=== PATIENT | male | born 1980 | race Caucasian/White ===

== ENCOUNTER 2017-07-24 11:56 | Emergency (ER) | payer MEDICAID ==
[~2017-07-24] VITALS: Ht 167.6 cm; Wt 83.5 kg
[2017-07-24 11:59] VITALS: Ht 167.6 cm; Wt 83.5 kg
[2017-07-24] MEDS ORDERED: LIDOCAINE 2% (MDV) 20 ML INJ INJ ONE (14:30)
[2017-07-24] MEDS ORDERED: DIPHTH/TET/ACEL PERTUSS (ADULT) 0.5 ML VIAL IM* ONE (14:30)
[2017-07-24] MEDS ORDERED: HYDROCODONE/APAP (5/325) TAB PO ONE (14:30)
[2017-07-24] MEDS ORDERED: HYDR-906 PO (15:11)
[2017-07-24] MEDS ORDERED: IBUP-1542 PO (15:11)
[2017-07-24] MEDS ORDERED: AMOX1TAB10 PO (15:11)
--- NOTE | 2017-07-24 15:25 | ERD ---
ER Documentation Chief Complaint Date/Time DATE: 07/24/17 TIME: 15:12 Chief Complaint DOG BITE TO RIGHT ELBOW TODAY HPI 37-year-old male patient with no significant past medical history presents to the ED complaining of a dog bite that occurred at 11:30 AM yesterday. 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 Dog breed was a Urdu Feldman. Reports that the dog was vaccinated with his rabies vaccine. Reports he right-handed. Patient reports that he is updated with his tetanus vaccine. Reports that he has slight decreased range of motion due to the pain. States that the dog bite was deep. Denies any loss of sensation, nausea, vomiting, fever, chills, diarrhea. ROS All systems reviewed and are negative except as per history of present illness. Medications Home Meds Active Scripts Amoxicillin/Potassium Clav (Amox-Clav 875-125 mg Tablet) 875-125 mg Tab, 1 TAB PO BID for 10 Days, #20 TAB Prov:RIYA BASURTO PA-C 07/24/17 Ibuprofen* (Motrin*) 600 Mg Tab, 600 MG PO Q6, #30 TAB Prov:RIYA BASURTOC 07/24/17 Hydrocodone/Acetaminophen (Flomaton 5-325 Tablet) 1 Each Tablet, 1 TAB PO QHS Y for PAIN, #7 TAB Prov:RIYA BASURTO PA-C 07/24/17 Allergies Allergies: Coded Allergies: No Known Allergy (Unverified , 07/24/17) PMhx/Soc Medical and Surgical Hx: pt denies Medical Hx, pt denies Surgical Hx Hx Alcohol Use: No Hx Substance Use: No Hx Tobacco Use: No Physical Exam Vitals Vital Signs Date Time Temp Pulse Resp B/P Pulse Ox O2 Delivery O2 Flow Rate FiO2 07/24/17 11:59 99.4 89 18 146/96 98 Physical Exam Const: Icb-buk-[id number], well-nourished. In no acute distress. Head: Atraumatic, normocephalic Eyes: Normal Conjunctiva without injection ENT: Normal external ear, nose and mouth. Neck: Full range of motion. No meningismus. Resp: Clear to auscultation bilaterally. No wheezing, rhonchi, rales, or crackles. No accessory muscle use. No retractions. Cardio: Regular rate and rhythm, no murmurs Skin: No petechiae or rashes Back: No midline tenderness. No CVA tenderness. Ext: No cyanosis, or edema. Cap refill less than 2 seconds. Distal pulses intact bilaterally. 2 cm x 1 cm laceration of lateral aspect of patient's right elbow. Slight erythema noted. No edema. No fluctuance or induration. Patient limited range of motion due to pain with flexion. Neur: Awake and alert. Normal gait and coordination. Muscle strength 5/5. Sensation intact bilaterally. Psych: Normal Mood and Affect Results 24 hrs Current Medications Medications (Trade) Dose Ordered Sig/Adeel Route PRN Reason Start Time Stop Time Status Last Admin Dose Admin Diphtheria/ Tetanus/Acell Pertussis (Adacel) 0.5 ml ONCE ONCE IM* 07/24/17 14:30 07/24/17 14:31 DC 07/24/17 14:25 Acetaminophen/ Hydrocodone Bitart (Flomaton (5/325)) 1 tab ONCE ONCE PO 07/24/17 14:30 07/24/17 14:31 DC 07/24/17 14:25 Lidocaine (Xylocaine 2% (Mdv) 20 ml) 20 ml ONCE ONCE INJ 07/24/17 14:30 07/24/17 14:31 DC Procedures/MDM This is a 37-year-old male patient with no significant past medical history presents to the ED for a dog bite to his right elbow. Patient is afebrile and nontoxic-appearing. Patient has normal vital signs. A right elbow x-ray was ordered to further evaluate patient. Patient gave consent to perform laceration repair. Laceration Repair by me: Anesthesia: 2% lidocaine locally Location: [Right elbow] Tendon/Joint/Nerves: No injury Foreign body: None detected after copious irrigation and exploration Technique: 1 3-0 Ethilon Simple Interrupted Sutures Complexity: No subcutaneous sutures/mucosal repair/ edge excision Post Closure Length: [2] cm PROCEDURE: XR Elbow. CLINICAL INDICATION: Right elbow pain after trauma. Dog bite. TECHNIQUE: Three views of the right elbow are available for review COMPARISON: None available FINDINGS: There is normal mineralization and alignment of the bones of the elbow. There is no elevation of the anterior or posterior fat pads to suggest joint effusion. No acute fractures are identified. There is mild soft tissue swelling and subcutaneous gas compatible with penetrating trauma. . IMPRESSION: 1. No evidence of acute fracture or dislocation. 2. Subcutaneous gas compatible with given history of dog bite. Patient's bleeding was easily controlled in the department and there is no indication of anemia. Patient is neurovascularly intact. No evidence of compartment syndrome, neurologic injury, vascular injury, open joint, tendon laceration, or foreign body. Patient is appropriate for outpatient follow up. Patient is neurovascularly intact. Patient's extremity symptoms have stabilized while they have been evaluated in the department and are appropriate for outpatient follow up. No evidence of necrotizing fascitis, fractures, dislocations, compartment syndrome, neurologic injury, vascular injury, open joint, open fracture, tendon laceration, septic arthritis, osteomyelitis, DVT, foreign body, or other emergent conditions. 48 hour wound check. Scar minimization instructions given. Instructed patient to return for suture removal in 7-10 days. This was discussed with my supervising physician Dr. Prado who agreed with the management and discharge plan. Discharge medications: Flomaton, Augmentin, Ibuprofen Follow up with primary care physician in 1-2 days. Instructed patient to return to the ED sooner for any worsening symptoms. Patient's questions were answered. Patient understood and agreed with discharge plan. Patient discharged stable. Departure Diagnosis: Primary Impression: Dog bite of right elbow Encounter type: initial encounter Qualified Code: S51.051A - Dog bite of right elbow, initial encounter Condition: Stable Patient Instructions: Dog Bite [facility] Usted se barrera hecho un examen mdico de control que le indica que no est en mahamed condicin que requiera tratamiento urgente en el Departamento de Emergencia. Un estudio ms profundo y el tratamiento de carreno condicin pueden esperar sin ningn riesgo hasta que usted sea atendida/o en el consultorio de carreno mdico o mahamed cl messi. Es responsabilidad suya arreglar mahamed tenzin para el seguimiento del zane. MANEJO DE CONDICIONES NO URGENTES EN EL FUTURO 1) Si usted tiene un mdico de atencin primaria: Usted debera llamar a carreno mdico de atencin primaria antes de venir al departamento de emergencia. Despus de las horas de consultorio, carreno doctor o carreno asociado/a est disponible por telfono. El mdico o enfermero de mark en el servicio telefnico puede asesorarle por chelo medio para atender el problema, o zane contrario se puede programar mahamed tenzin. 2) Si usted no tiene un mdico de atencin primaria: Llame al mdico o clnica de referencia que aparece abajo michele las horas de consultorio para hacer mahamed tenzin para que le vean. CLINICAS: [facility] [phone] [facility] [phone] [facility] [phone] [place] [id number] [phone] [place] [phone] [facility] [phone] [address] [facility]. [facility] () Usted se barrera hecho un examen mdico de control que le indica que no est en mahamed condicin que requiera tratamiento urgente en el Departamento de Emergencia. Un estudio ms profundo y el tratamiento de carreno condicin pueden esperar sin ningn riesgo hasta que usted sea atendida/o en el consultorio de carreno mdico o mahamed cl messi. Es responsabilidad suya arreglar mahamed tenzin para el seguimiento del zane. MANEJO DE CONDICIONES NO URGENTES EN EL FUTURO 1) Si usted tiene un mdico de atencin primaria: Usted debera llamar a carreno mdico de atencin primaria antes de venir al departamento de emergencia. Despus de las horas de consultorio, carreno doctor o carreno asociado/a est disponible por telfono. El mdico o enfermero de mark en el servicio telefnico puede asesorarle por chelo medio para atender el problema, o zane contrario se puede programar mahamed tenzin. 2) Si usted no tiene un mdico de atencin primaria: Llame al mdico o condado institucions de referencia que aparece abajo michele las horas de consultorio para hacer mahamed tenzin para que le vean. SI USTED NO PUEDE PAGAR PARA HARRY UN MEDICO puede ir a: [facility] [address] [place] [address] [facility] [address] [place] [address] [facility] [address] [place] [address] [facility] [address] [place], [place] [id number] [facility]CIAL[facility] Additional Instructions: WOUND CHECK:CONSULTE A CARRENO MDICO EN 2 oswald para harry CARRENO HERIDA. SUTURE REMOVAL:CONSULTE A CARRENO MDICO PARA SACAR CARRENO PUNTOS.PARA LA YARA 5-6 d as.EN OTRO LUGAR 7-10 oswald. Llame al doctor MAANA y arash mahamed TENZIN PARA DENTRO DE 2-3 JIMENEZ.Dgale a la secretaria que nosotros le instruimos hacer esta tenzin.Avise o llame si carreno condicin se empeora antes de la tenzin. Regresa aqui si peor o no mejor. RIYA BASURTO PA-C Jul 24, 2017 15:23
--- NOTE | 2017-07-24 16:27 | RADRPT ---
PROCEDURE: XR Elbow. CLINICAL INDICATION: Right elbow pain after trauma. Dog bite. TECHNIQUE: Three views of the right elbow are available for review COMPARISON: None available FINDINGS: There is normal mineralization and alignment of the bones of the elbow. There is no elevation of th e anterior or posterior fat pads to suggest joint effusion. No acute fractures are identified. Ther e is mild soft tissue swelling and subcutaneous gas compatible with penetrating trauma. . IMPRESSION: 1. No evidence of acute fracture or dislocation. 2. Subcutaneous gas compatible with given history of dog bite. RPTAT: AA .Tan Bradley MD, MD Date Time Electronically viewed and signed by .Tan Bradley MD, on 07/24/2017 16:26 .B/
== END 2017-07-24 17:10 | disposition home or self-care (01) ==
LOC: FTE 11:56
DX: S51.051A Open bite, right elbow, initial encounter (principal); W54.0XXA Bitten by dog, initial encounter; Y92.9 Unspecified place or not applicable; Z23 Encounter for immunization
CPT/HCPCS: 12001; 73080; 90471; 90715; Z7502; Z7610

== ENCOUNTER 2017-07-26 11:00 | Emergency (ER) | payer MEDICAID ==
[~2017-07-26] VITALS: Ht 162.6 cm; Wt 72.5 kg
[~2017-07-26 11:00] MED LIST: AMOX1TAB10 PO; HYDR-906 PO; IBUP-1542 PO
[2017-07-26 11:04] VITALS: Ht 162.6 cm; Wt 72.5 kg
--- NOTE | 2017-07-26 11:54 | ERD ---
ER Documentation Chief Complaint Date/Time DATE: 07/26/17 TIME: 11:51 Chief Complaint Patient here for a wound recheck HPI This is a 37-year-old male who presents to the emergency department today for wound check of a laceration that he sustained a couple of days ago after being bit by a dog. Patient indicates he is taking his antibiotics as prescribed. Denies any fevers or chills. States he does still have some pain with movement. ROS All systems reviewed and are negative except as per history of present illness. Medications Home Meds Active Scripts Amoxicillin/Potassium Clav (Amox-Clav 875-125 mg Tablet) 875-125 mg Tab, 1 TAB PO BID for 10 Days, #20 TAB Prov:RIYA BASURTO PA-C 07/24/17 Ibuprofen* (Motrin*) 600 Mg Tab, 600 MG PO Q6, #30 TAB Prov:RIYA BASURTO-C 07/24/17 Hydrocodone/Acetaminophen ([place] 5-325 Tablet) 1 Each Tablet, 1 TAB PO QHS Y for PAIN, #7 TAB Prov:RIYA BASURTO PA-C 07/24/17 Allergies Allergies: Coded Allergies: No Known Allergy (Unverified , 07/24/17) PMhx/Soc Hx Alcohol Use: No Hx Substance Use: No Hx Tobacco Use: No Physical Exam Vitals Vital Signs Date Time Temp Pulse Resp B/P Pulse Ox O2 Delivery O2 Flow Rate FiO2 07/26/17 11:04 98.6 88 20 119/74 97 Physical Exam Const: NAD Head: Atraumatic Eyes: Normal Conjunctiva ENT: Normal External Ears, Nose and Mouth. Neck: Full range of motion..~ No meningismus. Resp: Clear to auscultation bilaterally Cardio: Regular rate and rhythm, no murmurs Abd: Soft, non tender, non distended. Normal bowel sounds Skin: Right elbow with evidence of one suture placed. No erythema or warmth or purulent drainage. Back: No midline or flank tenderness Ext: No cyanosis, or edema. Elbow with no obvious deformity. Evidence of one suture placed. No erythema or warmth or purulent drainage. Decreased range of motion in extension missing approximately 5-10. Full active range of motion flexion. Neur: Awake and alert Psych: Normal Mood and Affect Procedures/MDM This a 37-year-old male who presents emergency department today for wound check after a laceration he sustained by dog bite 2 days ago. Patient is afebrile and otherwise well-appearing. He does have some decreased range of motion with full extension however his x-ray taken 2 days ago was negative for fracture. There did appear to be mild gas formation at that time consistent with dog bite. and penetrating wound I do have low suspicion for cellulitis, sepsis, deep space infection as patient is afebrile and otherwise well-appearing. There is no erythema or warmth or purulent drainage. There is evidence of one suture placed. I have explained to the patient he does need to continue taking his antibiotics as prescribed and keep the wound clean and dry. He may return in 5-7 days for suture removal. Patient understood and agreed with the plan. At this time the patient is stable for discharge and outpatient management. Patient should follow up with their PCP in the next 1-2 days. They may return to the emergency department sooner for any persistent or worsening of symptoms. Patient understood and agreed with the plan. I was notified by nursing staff prior to discharge the patient was requesting a sling. I will give the sling to the patient to wear for comfort however patient did have some pain with full extension I have explained to the patient that he should not keep it in the sling all the time that he does need to do gentle range of motion exercises. Patient understood. Departure Diagnosis: Primary Impression: Encounter for wound re-check Condition: Fair Patient Instructions: Wound Check, Lac F/U (No Infection) Referrals: your PCP Additional Instructions: Llame al doctor BOO y arash mahamed TENZIN PARA DENTRO DE 1-2 JIMENEZ.Dgale a la secretaria que nosotros le instruimos hacer esta tenzin.Avise o llame si bishop condicin se empeora antes de la tenzin. Regresa aqui si peor o no mejor. Continue taking your antibiotics as prescribed Return in 5-7 days for suture removal Keep wound clean and dry JOSE FIELD PA-C Jul 26, 2017 11:54
== END 2017-07-26 12:05 | disposition home or self-care (01) ==
LOC: FTE 11:00
DX: Z48.01 Encounter for change or removal of surgical wound dressing (principal)
CPT/HCPCS: Z7502; Z7610; 99281

== ENCOUNTER 2017-08-01 11:06 | Emergency (ER) | payer MEDICAID ==
[~2017-08-01] VITALS: Ht 165.1 cm; Wt 72.5 kg
[2017-08-01 11:10] VITALS: Ht 165.1 cm; Wt 72.5 kg
--- NOTE | 2017-08-01 12:51 | ERD ---
ER Documentation Chief Complaint Date/Time DATE: 08/01/17 TIME: 12:50 Chief Complaint RIGHT FOREARM WOUND RECHECK HPI 37-year-old male comes in for wound check in with right forearm from a dog bite that occurred 8 days ago. Patient had one suture placed, he denies pain, fevers or chills or drainage. ROS All systems reviewed and are negative except as per history of present illness. Medications Home Meds Active Scripts Amoxicillin/Potassium Clav (Amox-Clav 875-125 mg Tablet) 875-125 mg Tab, 1 TAB PO BID for 10 Days, #20 TAB Prov:RIYA BASURTO PA-C 07/24/17 Ibuprofen* (Motrin*) 600 Mg Tab, 600 MG PO Q6, #30 TAB Prov:RIYA BASURTOC 07/24/17 Hydrocodone/Acetaminophen ([place] 5-325 Tablet) 1 Each Tablet, 1 TAB PO QHS Y for PAIN, #7 TAB Prov:RIYA BASURTO-C 07/24/17 Allergies Allergies: Coded Allergies: No Known Allergy (Unverified , 07/24/17) PMhx/Soc Medical and Surgical Hx: pt denies Medical Hx, pt denies Surgical Hx Hx Alcohol Use: No Hx Substance Use: No Hx Tobacco Use: No Smoking Status: Never smoker Physical Exam Vitals Vital Signs Date Time Temp Pulse Resp B/P Pulse Ox O2 Delivery O2 Flow Rate FiO2 08/01/17 11:10 98.5 88 18 118/71 98 Physical Exam General: Well-developed, well-nourished. The patient appears in no acute distress. HEENT: Head is normocephalic, atraumatic. No scleral icterus. Neck: Supple. Nontender. Lungs: Clear to auscultation. Normal air movement. Heart: Regular rate and rhythm. S1 and S2 are normal. No murmurs, gallops, or rubs. Abdomen: Nondistended. Extremities: Right elbow has a healed laceration with 1 simple interrupted sutures intact, no dehiscence, erythema or drainage. She has full range of motion with right elbow flexion and extension neurologic: Alert and oriented 3. No focal deficits. Normal speech and gait. Skin: Normal turgor. No rash or lesions. Procedures/MDM Suture Removal by me: Sutures removed with tweezers and scissors without incident. Wound shows no evidence of infection, foreign body, neurologic injury, vascular injury, open joint or tendon laceration. Patient to follow up PRN. Departure Diagnosis: Primary Impression: Visit for suture removal Condition: Good Patient Instructions: Suture Removal, No Complication PETE TUCKER PA-C Aug 01, 2017 12:51
== END 2017-08-01 13:15 | disposition home or self-care (01) ==
LOC: FTE 11:06
DX: Z48.02 Encounter for removal of sutures (principal)
CPT/HCPCS: 99281